=== PATIENT | female | born 1975 | race Two or more races ===

== ENCOUNTER 2024-09-04 19:29 | Emergency (ER) | payer OTHER ==
[~2024-09-04] VITALS: Ht 154.9 cm; Wt 81.8 kg
[2024-09-04 19:37] VITALS: BP 154/85; PULSE 79; RESP 16; TEMP 97.8; O2SAT 98
[2024-09-05] MEDS: PERTUSS(ACELL),DIPH,TET/PF 0.5 ML SYRINGE [ADULT] IM. ONE (01:02)
[2024-09-05] MEDS: BACITRACIN 28 GM OINTMENT TP ONE (01:48)
== END 2024-09-05 02:04 | disposition home or self-care (01) ==
LOC: EMS 19:29
DX: T25.221A Burn of second degree of right foot, initial encounter (principal); Z90.49 Acquired absence of other specified parts of digestive tract; X08.8XXA Exposure to other specified smoke, fire and flames, initial encounter; Y93.89 Activity, other specified; Y92.89 Other specified places as the place of occurrence of the external cause; Y99.0 Civilian activity done for income or pay
CPT/HCPCS: 16020; 90471; 90715; 99283